=== PATIENT | female | born 1990 | race Caucasian/White ===

== ENCOUNTER 2017-04-02 19:03 | Emergency (ER) | payer MEDICAID ==
[~2017-04-02] VITALS: Ht 160 cm; Wt 99.0 kg
[~2017-04-02 19:03] MED LIST: FERR-55 PO; PREN1TAB49 PO; TBR.3OP5 LEFT EYE
[2017-04-02 19:05] VITALS: Ht 160 cm; Wt 99.0 kg
[2017-04-02] MEDS ORDERED: IBUPROFEN 600 MG TAB PO ONE (20:30)
--- NOTE | 2017-04-02 21:28 | RADRPT ---
PROCEDURE: Left wrist. CLINICAL INDICATION: Pain. TECHNIQUE: 4 views including PA, lateral and oblique views were performed. COMPARISON: None. FINDINGS: There is no fracture, dislocation or bone destruction. The joint spaces are within normal limits. Bone mineralization is within normal limits. There is no radiopaque foreign body or abnormal calcif ication. IMPRESSION: No evidence of fracture. .Bismark Hsu MD, Date Time Electronically viewed and signed by .Bismark Hsu MD, on 04/02/2017 21:28 .T/
[2017-04-02] MEDS ORDERED: IBUP-1542 PO (21:32)
--- NOTE | 2017-04-02 21:39 | ERD ---
ER Documentation Chief Complaint Date/Time DATE: 04/02/17 TIME: 21:37 Chief Complaint c/o left arm/wrist pain x 3 days after hitting the wall. (+) swelling HPI This is a 26-year-old female presenting to the emergency department complaining of left wrist pain locating it in the dorsal region of the distal forearm for 3 days after hitting a wall. Patient states that the pain is moderate in severity. She complains of swelling. She states that she has pain with flexion. She denies taking any medications for this ROS All systems reviewed and are negative except as per history of present illness. Medications Home Meds Active Scripts Ibuprofen* (Motrin*) 600 Mg Tab, 600 MG PO Q6H Y for PAIN AND OR ELEVATED TEMP, #30 TAB Prov:HALINA LEOS PA-C 04/02/17 Tobramycin Sulfate* (Tobrex*) 0.3%-5ml Opht, 1 DROP LEFT EYE Q4H for 7 Days, EA Prov:ERICA PIERRE 07/25/16 Reported Medications Ferrous Sulfate* (Ferrous Sulfate*) 325 Mg Tablet, 325 MG PO 06/16/12 Vits W-Ca,Fe,Fa(<1MG) () 1 Tab Tablet, 1 TAB PO 06/16/12 Allergies Allergies: Coded Allergies: No Known Drug Allergies (Verified Allergy, Mild, 08/26/14) PMhx/Soc History of Surgery: Yes (C/SECTION X3) Anesthesia Reaction: No Hx Neurological Disorder: No Hx Respiratory Disorders: No Hx Cardiac Disorders: No Hx Psychiatric Problems: No Hx Miscellaneous Medical Probl: No Hx Alcohol Use: No Hx Substance Use: No Hx Tobacco Use: No Physical Exam Vitals Vital Signs Date Time Temp Pulse Resp B/P Pulse Ox O2 Delivery O2 Flow Rate FiO2 04/02/17 19:05 98.6 86 18 142/66 98 Physical Exam General: WD/WN, in no apparent distress, non-toxic appearing HENT: NC/AT Eyes: Conjunctiva normal Neck: Supple Pulm: Clear to auscultation, normal labored breathing; no wheezing/rales/ rhonchi heard CV: Good capillary refill GI: Non-distended, no guarding Back: No masses Ext: Tenderness to palpation over the left distal forearm, negative snuffbox tenderness Neuro: Moves on all fours Skin: intact Psych: Normal mood Results 24 hrs Current Medications Medications (Trade) Dose Ordered Sig/Nabil Route PRN Reason Start Time Stop Time Status Last Admin Dose Admin Ibuprofen (Motrin) 600 mg ONCE ONCE PO 04/02/17 20:30 04/02/17 20:31 DC 04/02/17 20:21 Procedures/MDM This is a 26-year-old female presenting to the emergency department complaining of left distal forearm wrist pain status post hitting a wall 3 days prior to being seen. This is likely a sprain contusion. An x-ray was done of the left wrist and there was no evidence of fracture dislocation. Patient was placed in Ian bandage. She is neurovascular intact pre-and post treatment. Prescription for ibuprofen was provided. Discussed rest, elevation, ice. Discussed return to the ER for any worsening signs or symptoms. Discussed to follow-up with primary care physician. She understands and agrees with plan Departure Diagnosis: Primary Impression: Wrist sprain Condition: Stable Patient Instructions: Wrist Sprain Referrals: NO PRIMARY,CARE PHYSICIAN (PCP) Additional Instructions: FOLLOW UP WITH YOUR PRIMARY CARE PHYSICIAN TOMORROW.Return to this facility if you are not improving as expected. Take all medicines as directed.Return to this facility if you are not improving as expected. HALINA LEOS PA-C Apr 02, 2017 21:39
== END 2017-04-02 21:42 | disposition home or self-care (01) ==
LOC: FTE 19:03
DX: S63.502A Unspecified sprain of left wrist, initial encounter (principal); W22.01XA Walked into wall, initial encounter; Y92.9 Unspecified place or not applicable
CPT/HCPCS: 73110; Z7610